=== PATIENT | female | born 1945 | race Caucasian/White ===

== ENCOUNTER 2024-01-14 15:02 | Emergency (ER) | payer MEDICARE, OTHER, SELFPAY ==
[2024-01-14 15:07] VITALS: BP 171/64
[2024-01-14 15:48] LABS: % Immature Granulocytes 0.3 % (0-0.5); % Lymphocytes 22.6 % (20.5-51.1); % Neutrophils 63.1 % (42.2-75.2); Absolute Basophils 0.1 10^3/uL (0-0.2); Absolute Eosinophils 0.1 10^3/uL (0-0.7); Absolute Lymphocytes 1.6 10^3/uL (1.2-3.4); Absolute Monocytes 0.8 10^3/uL (0.1-0.6); Absolute Neutrophils 4.5 10^3/uL (1.4-6.5); Hematocrit 40.5 % (37.0-47.0); Hemoglobin 13.8 g/dL (12.0-16.0); Mean Corp Hgb Conc. 34.1 g/dL (33.0-37.0); Mean Corpuscular Hgb 29.8 pg (27.0-31.0); Mean Corpuscular Volume 87.5 fL (81.0-99.0); Mean Platelet Volume 10.1 fL (7.4-10.4); Nucleated Red Blood Cells % 0 %; Platelet Count 296 10^3/uL (130-400); Red Blood Cell Count 4.63 10^6/uL (4.20-5.40); Red Cell Dist. Width 14.4 % (11.5-14.5); White Blood Cell Count 7.2 10^3/uL (4.8-10.8)
[2024-01-14 16:00] LABS: APTT 39.3 Sec (23.4-35.0)
[2024-01-14 16:01] LABS: ALT (SGPT) 23 U/L (0-35); AST (SGOT) 29 U/L (14-36); Albumin 4.4 g/dl (3.5-5.0); Alkaline Phosphatase 71 U/L (38-126); Blood Urea Nitrogen 16 mg/dl (7-17); Calcium 10.3 mg/dl (8.4-10.2); Carbon Dioxide 30 mmol/L (22-30); Chloride 96 mmol/L (98-107); Glucose 92 mg/dl (70-99); Potassium 4.9 mmol/L (3.5-5.1); Sodium 134 mmol/L (135-145); Total Bilirubin 0.4 mg/dl (0.2-1.3); Total Protein 6.9 g/dl (6.3-8.2); eGFR > 60.00
--- NOTE | 2024-01-14 16:27 | ED.GENMED ---
History of Present Illness
General
Chief Complaint: DVT/Possible Blood Clot
Time Seen by Provider: 01/14/24 15:37
History of Present Illness
History of Present Illness:
78-year-old female with history of A-fib on Eliquis presenting to the emergency department for right calf pain. Patient reports that she recently returned from a trip from [place], took an airplane. While on the airplane, started to have right calf
pain. Denies history of blood clots in the past. Denies known injury or trauma. While she was on the plane she felt like something 'bit her '. Denies numbness or tingling to the extremity. Denies fever or systemic symptoms. Pain is worse with
ambulation. Denies additional acute medical complaints
Phy Exam
Physical Exam
Physical Exam:
General: Well-appearing, no clinical signs of dehydration, nontoxic and in no acute distress
HEENT: protecting airway
Neck: appears supple
CV: Normal heart rate, lungs clear to auscultation bilaterally
Abd: Soft and non-distended, no tenderness to palpation, normal bowel sounds
Extremities: No deformities, no swelling, mild focal tenderness to the right calf. No erythema or warmth. Distal sensation and pulses intact. Range of motion intact.
Neuro: alert, no focal neurologic deficit
: deferred
Rectal: deferred
Psych: Normal affect
Skin: Intact
Course
Orders/Labs/Results
Orders:
Orders
01/14/24 15:12
US Legs, Right [US Periph Venous LOWER Ext RT] Urgent
Comment:
Reason For Exam: right calf pain
01/14/24 15:33
Complete Blood Count/With Diff Urgent
Comprehensive Metabolic Panel Urgent
PTT Urgent
Abnormal Lab Results
01/14/24
15:33
Absolute Monos (auto) 0.8 H 10^3/uL
(0.1-0.6)
Monocytes % 11.0 H %
(1.7-9.3)
APTT 39.3 H Sec
(23.4-35.0)
Sodium 134 L mmol/L
(135-145)
Chloride 96 L mmol/L
(98-107)
Calcium 10.3 H mg/dl
(8.4-10.2)
01/14/24 15:33
01/14/24 15:33
Vital Signs
Initial and Last Documented VS:
Initial Vital Signs
Temp Pulse Resp BP Pulse Ox
98.3 F 61 20 171/64 98
01/14/24 15:07 01/14/24 15:07 01/14/24 15:07 01/14/24 15:07 01/14/24 15:07
Last Documented Vital Signs
Temp Pulse Resp BP Pulse Ox
98.3 F 61 20 171/64 98
01/14/24 15:07 01/14/24 15:07 01/14/24 15:07 01/14/24 15:07 01/14/24 15:07
MDM/Problems Addressed
MDM/Problems Addressed:
78-year-old female with history of A-fib on Eliquis presenting for right calf pain after a airplane trip from [place]. Vital signs significant for hypertension.
On exam, patient well-appearing, no acute distress or discomfort. Overall benign examination without significant swelling or deformity to the extremity. No neurovascular compromise. No infectious findings. Ultimately suspect musculoskeletal
pathology. Lower suspicion for DVT given anticoagulation status. Will obtain ultrasound imaging for screening.
17:00 - Ultrasound without DVT. Feel stable for discharge with continued patient supportive therapy. Advised outpatient PCP follow-up. Return precautions discussed and patient verbalized understanding.
*Critical Care Note
Total Time (30-74mins, 75-104mins- exclusive of procedures): Not Applicable
ED Attending Note
-
Portions of this chart may have been created with voice recognition software.� Occasional wrong word or��sound alike� substitutions may have occurred due to the inherent limitations of voice recognition software.
Discharge Plan
Departure
Referrals:
Yris Blackwell MD [Family Provider] -
Interventions
Interventions:
*Risk Screen - Suicide Last Done: 01/14/24 15:07
*General Assessment Last Done: 01/14/24 15:07
*Neglect/Abuse Screening Last Done: 01/14/24 15:07
ED- Cardiac Assessment Last Done: 01/14/24 15:53
ED- Pulmonary Assessment Last Done: 01/14/24 15:53
ED-Peripheral Vascular Assessment Last Done: 01/14/24 15:53
ED-Skin Assessment Last Done: 01/14/24 15:53
Discharge Date and Time
Print Language: ALBAN[place]
[2024-01-14 17:20] VITALS: BP 104/77
== END 2024-01-14 17:24 | disposition home or self-care (01) ==
LOC: EMR 15:02
PROVIDERS: Emergency Medicine; EMERGENCY PHYSICIAN Student in an Organized Health Care Education/Training Program; FAMILY PHYSICIAN Internal Medicine
DX: M79.661 Pain in right lower leg (principal); I48.91 Unspecified atrial fibrillation; I10 Essential (primary) hypertension; Z79.01 Long term (current) use of anticoagulants
CPT/HCPCS: 99284; 80053; 85025; 85730; 93971